=== PATIENT | male | born 1985 | race Caucasian/White ===

== ENCOUNTER 2022-11-13 22:25 | Emergency (ER) | payer MEDICAID ==
[~2022-11-13] VITALS: Ht 165.1 cm; Wt 82.0 kg
[2022-11-14 03:50] LABS: CHLORIDE 110 mEq/L (98-107)
[2022-11-14 03:53] LABS: BASOPHILS % 0.4 % (0.0-2.0); EOSINOPHILS % 1.9 % (0.0-5.0); HEMATOCRIT. 38.4 % (42.0-52.0); HEMOGLOBIN. 13.1 g/dL (14.0-18.0); LYMPHOCYTES % 25.7 % (20.0-50.0); MEAN CORPUSCULAR HEMOGLOBIN 28.1 pg (28.0-32.0); MEAN CORPUSCULAR VOLUME 82.3 fL (80.0-94.0); MEAN PLATELET VOLUME 7.5 fl (7.4-10.4); MONOCYTES % 8.7 % (2.0-8.0); NEUTROPHILS % 63.3 % (40.0-76.0); PLATELET 290 x1000/uL (130-400); RED BLOOD CELL COUNT 4.66 mill/uL (4.7-6.1); RED CELL DISTRIBUTION WIDTH 14.3 % (11.6-14.6)
[2022-11-14 03:57] LABS: ETHANOL BLOOD < 10 mg/dL
[2022-11-14 06:44] LABS: *AMPHETAMINES SCREEN URINE PRESUMTIVE POSITIVE (NEGATIVE); *BARBITURATES SCREEN URINE NEGATIVE (NEGATIVE); *BENZODIAZEPINES SCREEN URINE NEGATIVE (NEGATIVE); *COCAINE SCREEN URINE NEGATIVE (NEGATIVE); CANNABINOID URINE SCREEN NEGATIVE (NEGATIVE); METHADONE URINE SCREEN NEGATIVE (NEGATIVE); OPIATES URINE SCREEN NEGATIVE (NEGATIVE); PHENCYCLIDINE URINE SCREEN NEGATIVE (NEGATIVE)
[2022-11-14] MEDS: BUPROPION HCL 75MG TABLET PO SCH (16:49)
[2022-11-14] MEDS ORDERED: DIPHENHYDRAMINE 25MG CAPSULE PO ONE (20:15)
[2022-11-14] MEDS ORDERED: QUETIAPINE FUMARATE 50MG TABLET PO SCH (21:00)
[2022-11-15 08:30] VITALS: BP 120/78
[2022-11-15] MEDS: BUPROPION HCL 75MG TABLET PO SCH (09:00)
== END 2022-11-15 11:10 | disposition home or self-care (01) ==
LOC: ER 22:25
DX: R45.851 Suicidal ideations (principal); F20.9 Schizophrenia, unspecified; F22 Delusional disorders; F32.9 Major depressive disorder, single episode, unspecified; T43.641A Poisoning by ecstasy, accidental (unintentional), initial encounter; Y92.9 Unspecified place or not applicable; Z59.00 Homelessness unspecified; Z20.822 Contact with and (suspected) exposure to COVID-19
CPT/HCPCS: 80053; 80305; 80307; 80320; 80329; 85025; 87426; 99284; C9803; Q0163; Z7610; G0480